=== PATIENT | male | born 1990 | race Caucasian/White ===

== ENCOUNTER 2016-11-24 17:34 | Emergency (ER) | payer MEDICAID | END 2016-11-24 20:18 | disposition home or self-care (01) | LOC: D.ER 17:34 | DX: Z76.0 Encounter for issue of repeat prescription (principal); G25.81 Restless legs syndrome; F17.200 Nicotine dependence, unspecified, uncomplicated ==

== ENCOUNTER 2017-05-10 16:15 | Emergency (ER) | payer MEDICAID ==
[2017-05-10 17:01] LABS: BASOPHILS 0.2 % (0-2); EOSINOPHILS 4.2 % (0-7); HEMATOCRIT 44.5 % (42.0-54.0); HEMOGLOBIN 15.4 g/dL (13.5-17.5); IMMATURE GRANULOCYTES 0.2 % (0-5); LYMPHOCYTES 29.7 % (15-50); MCH 31.4 pg (26.0-34.0); MCHC 34.6 g/dL (31.0-37.0); MCV 90.8 fL (80.0-100.0); MEAN PLATELET VOLUME 10.2 fL (7.4-10.4); MONOCYTES 7.2 % (2-11); NEUTROPHILS 58.5 % (40-80); PLATELET COUNT 271 10x3/uL (130-400); RDW 12.8 % (11.5-14.5); WBC 12.7 10x3/uL (4.8-10.8)
[2017-05-10 17:15] LABS: APTT 31.3 SECONDS (22.8-39.4); INR 0.92 (0.85-1.17); PROTIME 12.2 SECONDS (11.6-15.0)
[2017-05-10 17:18] LABS: ALBUMIN 4.3 g/dL (3.4-5.0); ALKALINE PHOSPHATASE 76 U/L (46-116); ALT (SGPT) 21 U/L (10-68); BILIRUBIN - TOTAL 0.21 mg/dL (0.2-1.3); CALC OSMOLALITY 278 mosm/kg (275-300); CALCIUM 9.2 mg/dL (8.5-10.1); CARBON DIOXIDE 26.6 mmol/L (21.0-32.0); CHLORIDE - SERUM 103 mmol/L (98-107); CREATININE - SERUM 0.9 mg/dL (0.6-1.3); GLUCOSE 77 mg/dL (74-106); POTASSIUM - SERUM 3.7 mmol/L (3.5-5.1); PROTEIN - SERUM 7.8 g/dL (6.4-8.2); SODIUM 141 mmol/L (136-145); UREA NITROGEN 11 mg/dL (7-18); eGFR NON AFRICAN AMERICAN > 90 mL/min (90-120)
== END 2017-05-10 18:56 | disposition home or self-care (01) ==
LOC: D.ER 16:15
PROVIDERS: Emergency Medicine
DX: K64.9 Unspecified hemorrhoids (principal); K04.7 Periapical abscess without sinus

== ENCOUNTER 2017-06-26 16:07 | Emergency (ER) | payer MEDICAID | END 2017-06-26 17:45 | disposition home or self-care (01) | LOC: D.ER 16:07 | DX: K02.9 Dental caries, unspecified (principal); K08.89 Other specified disorders of teeth and supporting structures; K04.7 Periapical abscess without sinus; F17.200 Nicotine dependence, unspecified, uncomplicated ==

== ENCOUNTER 2017-09-22 13:56 | Emergency (ER) | payer MEDICAID | END 2017-09-22 15:38 | disposition home or self-care (01) | LOC: D.ER 13:56 | DX: M25.471 Effusion, right ankle (principal); S99.911A Unspecified injury of right ankle, initial encounter; W19.XXXA Unspecified fall, initial encounter; Y93.89 Activity, other specified; Y92.019 Unspecified place in single-family (private) house as the place of occurrence of the external cause; F17.200 Nicotine dependence, unspecified, uncomplicated ==

== ENCOUNTER 2018-01-05 20:32 | Emergency (ER) | payer MEDICAID ==
[~2018-01-05] VITALS: Ht 180.3 cm; Wt 66.8 kg
[2018-01-05 20:36] VITALS: Ht 180.3 cm; Wt 66.8 kg
[2018-01-05] MEDS ORDERED: NORCO 7.5/325 T1 TA1 PO (22:46)
[2018-01-05] MEDS ORDERED: CLEOCIN HCL300 MG PO (22:47)
[2018-01-05 23:02] VITALS: BP 123/70
[2018-03-09 08:19] VITALS: Ht 180.3 cm; Wt 66.8 kg
== END 2018-01-05 23:04 | disposition home or self-care (01) ==
LOC: D.ER 20:32
DX: K08.109 Complete loss of teeth, unspecified cause, unspecified class (principal); F17.200 Nicotine dependence, unspecified, uncomplicated

== ENCOUNTER 2018-01-12 15:50 | Emergency (ER) | payer MEDICAID ==
[~2018-01-12] VITALS: Ht 180.3 cm; Wt 66.8 kg
[~2018-01-12 15:50] MED LIST: CLEOCIN HCL300 MG PO; NORCO 7.5/325 T1 TA1 PO
[2018-01-12 16:12] VITALS: BP 116/80; Ht 180.3 cm; Wt 66.8 kg
[2018-01-12] MEDS ORDERED: TYLENOL W/CODEI1 TAB PO (18:27)
[2018-03-09 08:19] VITALS: Ht 180.3 cm; Wt 66.8 kg
== END 2018-01-12 18:37 | disposition home or self-care (01) ==
LOC: D.ER 15:50
DX: K06.9 Disorder of gingiva and edentulous alveolar ridge, unspecified (principal); I10 Essential (primary) hypertension; F17.200 Nicotine dependence, unspecified, uncomplicated

== ENCOUNTER 2018-01-31 13:54 | Emergency (ER) | payer MEDICAID ==
[~2018-01-31] VITALS: Ht 180.3 cm; Wt 63.5 kg
[~2018-01-31 13:54] MED LIST changes: +TYLENOL W/CODEI1 TAB PO
[2018-01-31 14:03] VITALS: BP 102/63; Ht 180.3 cm; Wt 63.5 kg
[2018-01-31] MEDS ORDERED: CLEOCIN HCL300 MG PO (14:50)
[2018-01-31] MEDS ORDERED: VOLTAREN75 MG PO (14:50)
[2018-03-09 08:19] VITALS: Ht 180.3 cm; Wt 63.5 kg
== END 2018-01-31 15:08 | disposition home or self-care (01) ==
LOC: D.ER 13:54
DX: K04.7 Periapical abscess without sinus (principal); K08.89 Other specified disorders of teeth and supporting structures; I10 Essential (primary) hypertension

== ENCOUNTER 2018-02-28 17:38 | Emergency (ER) | payer MEDICAID ==
[2018-01-31 14:03] VITALS: BMI 20.5
[~2018-02-28 17:38] MED LIST changes: +VOLTAREN75 MG PO
[2018-03-09 08:19] VITALS: BMI 20.2
== END 2018-02-28 17:45 | disposition home or self-care (01) ==
LOC: D.ER 17:38
DX: L98.9 Disorder of the skin and subcutaneous tissue, unspecified (principal)

== ENCOUNTER 2018-03-01 19:49 | Inpatient (IN) | payer MEDICAID ==
[~2018-03-01] VITALS: Ht 180.3 cm; Wt 65.8 kg
--- NOTE | ~2018-03-01 | EC ---
PATIENT:PENNY DUMONT DATE OF SERVICE: 03/02/18 SEX: M MEDICAL RECORD: [id number] DATE OF : [birth year] LOCATION:[facility] AGE OF PATIENT: 27 ADMISSION DATE: 03/02/18 REFERRING PHYSICIAN: INTERPRETING PHYSICIAN: STEFANIA CALLAWAY MD ECHOCARDIOGRAM REPORT ECHO CHARGES 4 ECHO COMPLETE Date: 03/02/18 CLINICAL DIAGNOSIS: R/O VEGETATIONS ECHOCARDIOGRAPHIC MEASUREMENTS (adult normal given) AC root (d.<3.7cm) 3.6 cm LV Septum d (<1.2 cm> 1.0 cm Valve Excursion 2.4 cm LV Septum (systole) 1.5 cm Left Atria (s.<4.0cm> 3.5 cm LVPW d(<1.2cm) 1.0 cm RV (d.<2.3cm) 2.4 cm LVPW (sytole) 1.7 cm LV diastole(<5.6CM) 5.3 cm MV E-F(>70mm/sec) cm LV systole 3.0 cm LVOT Diameter 1.9 cm MV exc.(>10mm) cm Est.ejection fraction (50-75%) % DOPPLER: LVIT cm/sec A 46.0 cm/sec E 82.0 cm/sec LA cm/sec RVSP 31.4 mmHg LVOT 108 cm/sec AOP1/2T m/s Asc. Ao 115 cm/sec RVOT 54.0 cm/sec RA cm/sec PA 100 cm/sec AV Gradient Peak 5.3 mmHg AV Mean 3.3 mmHg AV Area 2.2 cm MV Gradient Peak 3.7 mmHg MV Mean 0.97 mmHg MV Area cm COMMENTS: Flying I Instructor: Xin DOVEOE Dish Cloth Inspector: 1 Dr. Callaway TAPE# PACS Pericardial Effusion N DATE OF SERVICE: 03/02/2018 PROCEDURE: Echocardiogram. FINDINGS: 1. Left ventricular chamber size is within normal limits. Left ventricular systolic function is normal. Overall ejection fraction estimated at 55%. 2. Left atrium, right atrium, and right ventricle chamber sizes are within normal limits. 3. Valvular structures have normal structure and motion. ECHOCARDIOGRAM REPORT [id number] PENNY DUMONT 4. Doppler interrogation reveals moderate tricuspid regurgitation, mild mitral regurgitation, no other valvular insufficiency or stenosis. Pulmonary systolic pressure is normal estimated 34 mmHg. 5. No evidence of pericardial effusion or left ventricular thrombus. 6. No evidence of vegetative endocarditis. TRANSINT:[id number] Voice Confirmation ID: [id number] DOCUMENT ID: [id number] STEFANIA CALLAWAY MD at 1950 CC: [id number] DICTATION DATE: 03/03/18 1121 CNS: 03/03/18 1135 DIS IN 03/07/18 [place] [id number] [place] [id number]
[2018-03-01 20:32] LABS: BASOPHILS 0.2 % (0-2); HEMATOCRIT 48.1 % (42.0-54.0); HEMOGLOBIN 17.4 g/dL (13.5-17.5); IMMATURE GRANULOCYTES 0.3 % (0-5); MCH 31.6 pg (26.0-34.0); MCHC 36.2 g/dL (31.0-37.0); MCV 87.3 fL (80.0-100.0); MEAN PLATELET VOLUME 10.7 fL (7.4-10.4); MONOCYTES 4.9 % (2-11); NEUTROPHILS 70.6 % (40-80); PLATELET COUNT 287 10x3/uL (130-400); RBC 5.51 10x6/uL (4.20-6.10); RDW 13.7 % (11.5-14.5); WBC 15.9 10x3/uL (4.8-10.8)
[2018-03-01 21:06] LABS: ALBUMIN 4.4 g/dL (3.4-5.0); ALKALINE PHOSPHATASE 77 U/L (46-116); ALT (SGPT) 20 U/L (10-68); BILIRUBIN - TOTAL 0.26 mg/dL (0.2-1.3); CALC OSMOLALITY 274 mosm/kg (275-300); CALCIUM 9.2 mg/dL (8.5-10.1); CARBON DIOXIDE 23.6 mmol/L (21.0-32.0); CHLORIDE - SERUM 102 mmol/L (98-107); CREATININE - SERUM 1.1 mg/dL (0.6-1.3); GLUCOSE 89 mg/dL (74-106); POTASSIUM - SERUM 4.2 mmol/L (3.5-5.1); PROTEIN - SERUM 8.1 g/dL (6.4-8.2); SODIUM 139 mmol/L (136-145); UREA NITROGEN 7 mg/dL (7-18); eGFR NON AFRICAN AMERICAN 84 mL/min (90-120)
[2018-03-02] MEDS ORDERED: NEURONTIN 300300 MG PO (01:52)
[2018-03-02] MEDS ORDERED: VALIUM10 MG PO (01:53)
[2018-03-02] MEDS ORDERED: ADDERALL 10 MG10 MG PO (01:54)
[2018-03-02 02:35] VITALS: BP 117/94; BMI 20.2
[2018-03-02 05:07] VITALS: BP 117/94
[2018-03-02 07:57] VITALS: BP 125/78
[2018-03-02 15:45] VITALS: BP 135/89
[2018-03-02 16:29] LABS: APPEARANCE CLEAR (CLEAR); BILIRUBIN NEGATIVE (NEGATIVE); COLOR YELLOW (YELLOW); GLUCOSE NEGATIVE (NEGATIVE); KETONE NEGATIVE (NEGATIVE); NITRITE NEGATIVE (NEGATIVE); PROTEIN NEGATIVE (NEGATIVE); SPECIFIC GRAVITY 1.015 (1.005-1.020); UROBILINOGEN NORMAL (NORMAL)
[2018-03-02 16:35] LABS: UDS - AMPHET NEGATIVE QUAL (NEGATIVE); UDS - BARB NEGATIVE QUAL (NEGATIVE); UDS - BENZO POSITIVE QUAL (NEGATIVE); UDS - COCAINE NEGATIVE QUAL (NEGATIVE); UDS - OPIATE POSITIVE QUAL (NEGATIVE); UDS - PCP NEGATIVE QUAL (NEGATIVE); UDS - THC NEGATIVE QUAL (NEGATIVE)
[2018-03-02 22:12] VITALS: BP 119/81
[2018-03-03 04:27] VITALS: BP 134/74
[2018-03-03 06:28] LABS: BASOPHILS 0.7 % (0-2); EOSINOPHILS 6.5 % (0-7); HEMATOCRIT 42.6 % (42.0-54.0); HEMOGLOBIN 14.8 g/dL (13.5-17.5); IMMATURE GRANULOCYTES 0.2 % (0-5); LYMPHOCYTES 37.1 % (15-50); MCH 30.6 pg (26.0-34.0); MCHC 34.7 g/dL (31.0-37.0); MEAN PLATELET VOLUME 11.5 fL (7.4-10.4); MONOCYTES 8.1 % (2-11); NEUTROPHILS 47.4 % (40-80); RBC 4.84 10x6/uL (4.20-6.10)
[2018-03-03 06:30] LABS: PLATELET COUNT 228 10x3/uL (130-400); WBC 8.9 10x3/uL (4.8-10.8)
[2018-03-03 06:57] LABS: CALC OSMOLALITY 275 mosm/kg (275-300); CALCIUM 8.3 mg/dL (8.5-10.1); CARBON DIOXIDE 25.9 mmol/L (21.0-32.0); CHLORIDE - SERUM 106 mmol/L (98-107); CREATININE - SERUM 0.9 mg/dL (0.6-1.3); GLUCOSE 117 mg/dL (74-106); POTASSIUM - SERUM 3.9 mmol/L (3.5-5.1); SODIUM 138 mmol/L (136-145); eGFR NON AFRICAN AMERICAN > 90 mL/min (90-120)
[2018-03-03 06:58] LABS: UREA NITROGEN 9 mg/dL (7-18)
[2018-03-03 09:19] VITALS: BP 97/52
[2018-03-03 12:12] VITALS: BMI 20.2
[2018-03-03 16:31] VITALS: BP 125/73
[2018-03-03 21:44] VITALS: BP 121/77
[2018-03-04 05:02] VITALS: BP 98/50
[2018-03-04 08:14] VITALS: BP 119/70
[2018-03-04 09:56] LABS: BASOPHILS 0.5 % (0-2); EOSINOPHILS 7.1 % (0-7); HEMOGLOBIN 14.9 g/dL (13.5-17.5); IMMATURE GRANULOCYTES 0.4 % (0-5); LYMPHOCYTES 34.4 % (15-50); MCH 30.6 pg (26.0-34.0); MCHC 34.7 g/dL (31.0-37.0); MCV 88.3 fL (80.0-100.0); MEAN PLATELET VOLUME 11.1 fL (7.4-10.4); MONOCYTES 9.5 % (2-11); NEUTROPHILS 48.1 % (40-80); PLATELET COUNT 225 10x3/uL (130-400); RBC 4.87 10x6/uL (4.20-6.10); WBC 7.3 10x3/uL (4.8-10.8)
[2018-03-04 10:10] LABS: ALBUMIN 2.9 g/dL (3.4-5.0); ALKALINE PHOSPHATASE 61 U/L (46-116); ALT (SGPT) 19 U/L (10-68); CALC OSMOLALITY 277 mosm/kg (275-300); CALCIUM 7.9 mg/dL (8.5-10.1); CARBON DIOXIDE 30.6 mmol/L (21.0-32.0); CHLORIDE - SERUM 106 mmol/L (98-107); GLUCOSE 110 mg/dL (74-106); POTASSIUM - SERUM 4.2 mmol/L (3.5-5.1); PROTEIN - SERUM 5.6 g/dL (6.4-8.2); SODIUM 140 mmol/L (136-145); UREA NITROGEN 8 mg/dL (7-18); eGFR NON AFRICAN AMERICAN > 90 mL/min (90-120)
[2018-03-04 12:02] VITALS: BP 114/69
[2018-03-05 06:00] LABS: BASOPHILS 0.6 % (0-2); EOSINOPHILS 6.4 % (0-7); HEMATOCRIT 42.7 % (42.0-54.0); IMMATURE GRANULOCYTES 0.4 % (0-5); LYMPHOCYTES 35.6 % (15-50); MCH 30.9 pg (26.0-34.0); MCHC 35.1 g/dL (31.0-37.0); MCV 87.9 fL (80.0-100.0); MEAN PLATELET VOLUME 11.3 fL (7.4-10.4); MONOCYTES 6.8 % (2-11); NEUTROPHILS 50.2 % (40-80); PLATELET COUNT 230 10x3/uL (130-400); RBC 4.86 10x6/uL (4.20-6.10); RDW 13.6 % (11.5-14.5); WBC 8.4 10x3/uL (4.8-10.8)
[2018-03-05 06:03] VITALS: BP 110/60; BP 111/56
[2018-03-05 06:15] LABS: ALBUMIN 3.4 g/dL (3.4-5.0); ALKALINE PHOSPHATASE 55 U/L (46-116); ALT (SGPT) 17 U/L (10-68); CALC OSMOLALITY 276 mosm/kg (275-300); CALCIUM 8.4 mg/dL (8.5-10.1); CARBON DIOXIDE 28.4 mmol/L (21.0-32.0); CHLORIDE - SERUM 105 mmol/L (98-107); CREATININE - SERUM 0.9 mg/dL (0.6-1.3); GLUCOSE 95 mg/dL (74-106); POTASSIUM - SERUM 4.3 mmol/L (3.5-5.1); PROTEIN - SERUM 6.3 g/dL (6.4-8.2); SODIUM 140 mmol/L (136-145); UREA NITROGEN 8 mg/dL (7-18); eGFR NON AFRICAN AMERICAN > 90 mL/min (90-120)
[2018-03-05 08:24] VITALS: BP 108/60
[2018-03-05 16:02] VITALS: BP 126/80
[2018-03-05 20:00] VITALS: BP 127/84
[2018-03-06 05:57] VITALS: BP 116/69
[2018-03-06 06:11] LABS: BASOPHILS 0.7 % (0-2); EOSINOPHILS 6.8 % (0-7); HEMATOCRIT 45.3 % (42.0-54.0); IMMATURE GRANULOCYTES 0.2 % (0-5); MCHC 35.3 g/dL (31.0-37.0); MCV 87.8 fL (80.0-100.0); MEAN PLATELET VOLUME 11.2 fL (7.4-10.4); MONOCYTES 7.3 % (2-11); PLATELET COUNT 251 10x3/uL (130-400); RBC 5.16 10x6/uL (4.20-6.10); RDW 13.7 % (11.5-14.5); WBC 9.4 10x3/uL (4.8-10.8)
[2018-03-06 06:38] LABS: ALBUMIN 3.2 g/dL (3.4-5.0); ALKALINE PHOSPHATASE 51 U/L (46-116); ALT (SGPT) 18 U/L (10-68); BILIRUBIN - TOTAL 0.16 mg/dL (0.2-1.3); CALC OSMOLALITY 277 mosm/kg (275-300); CALCIUM 8.5 mg/dL (8.5-10.1); CARBON DIOXIDE 27.5 mmol/L (21.0-32.0); CHLORIDE - SERUM 106 mmol/L (98-107); CREATININE - SERUM 0.8 mg/dL (0.6-1.3); GLUCOSE 91 mg/dL (74-106); POTASSIUM - SERUM 3.7 mmol/L (3.5-5.1); PROTEIN - SERUM 6.4 g/dL (6.4-8.2); SODIUM 140 mmol/L (136-145); UREA NITROGEN 10 mg/dL (7-18); eGFR NON AFRICAN AMERICAN > 90 mL/min (90-120)
[2018-03-06 07:37] LABS: RAPID PLASMA REAGIN Non Reactive (Non Reactive)
[2018-03-06 08:18] LABS: HEPATITIS C ANTIBODY <0.1 (0.0-0.9)
[2018-03-06 08:23] VITALS: BP 114/66
[2018-03-06 11:30] VITALS: BP 134/79
[2018-03-06 14:15] VITALS: Ht 180.3 cm; Wt 65.8 kg
[2018-03-06 15:30] VITALS: BP 126/73
[2018-03-06 21:13] VITALS: BP 111/65
[2018-03-07 05:14] VITALS: BP 124/64
[2018-03-07 05:53] LABS: BASOPHILS 0.5 % (0-2); EOSINOPHILS 5.6 % (0-7); HEMATOCRIT 43.1 % (42.0-54.0); HEMOGLOBIN 15.1 g/dL (13.5-17.5); IMMATURE GRANULOCYTES 0.2 % (0-5); LYMPHOCYTES 25.9 % (15-50); MCH 30.5 pg (26.0-34.0); MCV 87.1 fL (80.0-100.0); NEUTROPHILS 62.8 % (40-80); PLATELET COUNT 249 10x3/uL (130-400); RBC 4.95 10x6/uL (4.20-6.10); RDW 13.5 % (11.5-14.5); WBC 10.5 10x3/uL (4.8-10.8)
[2018-03-07 06:38] LABS: ALBUMIN 3.2 g/dL (3.4-5.0); ALKALINE PHOSPHATASE 42 U/L (46-116); ALT (SGPT) 19 U/L (10-68); BILIRUBIN - TOTAL 0.17 mg/dL (0.2-1.3); CALC OSMOLALITY 283 mosm/kg (275-300); CALCIUM 8.3 mg/dL (8.5-10.1); CARBON DIOXIDE 24.2 mmol/L (21.0-32.0); CHLORIDE - SERUM 108 mmol/L (98-107); CREATININE - SERUM 0.7 mg/dL (0.6-1.3); GLUCOSE 95 mg/dL (74-106); POTASSIUM - SERUM 4.1 mmol/L (3.5-5.1); SODIUM 143 mmol/L (136-145); UREA NITROGEN 9 mg/dL (7-18); eGFR NON AFRICAN AMERICAN > 90 mL/min (90-120)
[2018-03-07 09:30] VITALS: BP 110/64
[2018-03-07 10:55] VITALS: BP 122/85
[2018-03-07] MEDS ORDERED: Bactroban ointment TOPICAL (13:08)
[2018-03-07] MEDS ORDERED: CLEOCIN HCL300 MG PO (13:13)
== END 2018-03-07 16:33 | disposition home or self-care (01) | DRG 603 ==
LOC: D.ER 19:49 → D.MS 03-02 00:20 → D.EDHOLD 03-02 00:20 → D.MS 03-02 01:19
PROVIDERS: Family Medicine; Internal Medicine Nephrology
PROC: 0H9DXZZ Drainage of Right Lower Arm Skin, External Approach (ICD-10-PCS; principal; 2018-03-03)
PROC: 0H9DXZZ Drainage of Right Lower Arm Skin, External Approach (ICD-10-PCS; 2018-03-07)
DX: L03.113 Cellulitis of right upper limb (principal); F17.213 Nicotine dependence, cigarettes, with withdrawal; L02.413 Cutaneous abscess of right upper limb; K04.7 Periapical abscess without sinus; G40.909 Epilepsy, unspecified, not intractable, without status epilepticus; I10 Essential (primary) hypertension; Z85.72 Personal history of non-Hodgkin lymphomas; K06.9 Disorder of gingiva and edentulous alveolar ridge, unspecified; N48.89 Other specified disorders of penis

== ENCOUNTER 2018-03-09 07:57 | Emergency (ER) | payer MEDICAID ==
[~2018-03-09] VITALS: Ht 180.3 cm; Wt 65.9 kg
[~2018-03-09 07:57] MED LIST changes: +ADDERALL 10 MG10 MG PO; +Bactroban ointment TOPICAL; +NEURONTIN 300300 MG PO; +VALIUM10 MG PO
[2018-03-09 08:19] VITALS: Ht 180.3 cm; Wt 65.9 kg
[2018-03-09 09:07] LABS: BASOPHILS 0.4 % (0-2); EOSINOPHILS 4.5 % (0-7); HEMATOCRIT 49.5 % (42.0-54.0); HEMOGLOBIN 17.4 g/dL (13.5-17.5); IMMATURE GRANULOCYTES 0.3 % (0-5); LYMPHOCYTES 17.6 % (15-50); MCH 31.1 pg (26.0-34.0); MCHC 35.2 g/dL (31.0-37.0); MCV 88.4 fL (80.0-100.0); MEAN PLATELET VOLUME 10.6 fL (7.4-10.4); MONOCYTES 6.2 % (2-11); PLATELET COUNT 281 10x3/uL (130-400); RDW 13.6 % (11.5-14.5); WBC 11.3 10x3/uL (4.8-10.8)
[2018-03-09 09:14] LABS: UDS - AMPHET NEGATIVE QUAL (NEGATIVE); UDS - BARB NEGATIVE QUAL (NEGATIVE); UDS - BENZO POSITIVE QUAL (NEGATIVE); UDS - COCAINE NEGATIVE QUAL (NEGATIVE); UDS - OPIATE NEGATIVE QUAL (NEGATIVE); UDS - PCP NEGATIVE QUAL (NEGATIVE); UDS - THC NEGATIVE QUAL (NEGATIVE)
[2018-03-09 09:15] LABS: APPEARANCE CLEAR (CLEAR); BILIRUBIN NEGATIVE (NEGATIVE); COLOR YELLOW (YELLOW); GLUCOSE NEGATIVE (NEGATIVE); KETONE NEGATIVE (NEGATIVE); NITRITE NEGATIVE (NEGATIVE); PROTEIN NEGATIVE (NEGATIVE); UROBILINOGEN NORMAL (NORMAL)
[2018-03-09 09:29] LABS: ALBUMIN 4.4 g/dL (3.4-5.0); ALKALINE PHOSPHATASE 57 U/L (46-116); ALT (SGPT) 26 U/L (10-68); BILIRUBIN - TOTAL 0.39 mg/dL (0.2-1.3); C-REACTIVE PROTEIN < 0.2 mg/dL (0.0-0.9); CALC OSMOLALITY 274 mosm/kg (275-300); CALCIUM 9.5 mg/dL (8.5-10.1); CARBON DIOXIDE 28.1 mmol/L (21.0-32.0); CHLORIDE - SERUM 103 mmol/L (98-107); CREATININE - SERUM 0.9 mg/dL (0.6-1.3); GLUCOSE 92 mg/dL (74-106); POTASSIUM - SERUM 4.3 mmol/L (3.5-5.1); PROTEIN - SERUM 8.3 g/dL (6.4-8.2); SODIUM 138 mmol/L (136-145); UREA NITROGEN 11 mg/dL (7-18); eGFR NON AFRICAN AMERICAN > 90 mL/min (90-120)
[2018-03-09] MEDS ORDERED: TYLENOL W/CODEI1 TAB PO (09:29)
[2018-03-09 09:59] VITALS: BP 140/96
== END 2018-03-09 10:06 | disposition home or self-care (01) ==
LOC: D.ER 07:57
PROVIDERS: Family Medicine
DX: L02.413 Cutaneous abscess of right upper limb (principal); G40.909 Epilepsy, unspecified, not intractable, without status epilepticus; I10 Essential (primary) hypertension

== ENCOUNTER 2018-04-03 14:10 | Emergency (ER) | payer MEDICAID ==
[~2018-04-03] VITALS: Ht 180.3 cm; Wt 68.2 kg
[2018-04-03 14:16] VITALS: Ht 180.3 cm; Wt 68.2 kg
[2018-04-03] MEDS ORDERED: CELEXA20 MG PO (14:19)
[2018-04-03] MEDS ORDERED: NEURONTIN600 MG PO (15:34)
[2018-04-03 15:55] VITALS: BP 126/79
== END 2018-04-03 15:55 | disposition home or self-care (01) ==
LOC: D.ER 14:10
DX: Z76.0 Encounter for issue of repeat prescription (principal); G40.909 Epilepsy, unspecified, not intractable, without status epilepticus; F17.200 Nicotine dependence, unspecified, uncomplicated

== ENCOUNTER 2018-04-21 15:39 | Emergency (ER) | payer MEDICAID ==
[~2018-04-21] VITALS: Ht 180.3 cm; Wt 71.4 kg
[~2018-04-21 15:39] MED LIST changes: +CELEXA20 MG PO; +NEURONTIN600 MG PO
[2018-04-21 15:43] VITALS: Ht 180.3 cm; Wt 71.4 kg
[2018-04-21] MEDS ORDERED: NEURONTIN600 MG PO (16:34)
[2018-04-21 17:02] VITALS: BP 135/91
== END 2018-04-21 17:03 | disposition home or self-care (01) ==
LOC: D.ER 15:39
DX: G40.909 Epilepsy, unspecified, not intractable, without status epilepticus (principal); F41.9 Anxiety disorder, unspecified; I10 Essential (primary) hypertension; F17.200 Nicotine dependence, unspecified, uncomplicated

== ENCOUNTER 2018-05-06 00:01 | Emergency (ER) | payer MEDICAID ==
[~2018-05-06] VITALS: Ht 180.3 cm; Wt 65.9 kg
[2018-05-06 00:12] VITALS: Ht 180.3 cm; Wt 65.9 kg
[2018-05-06] MEDS ORDERED: LITHIUM CARBON300 MG PO (00:14)
[2018-05-06 00:59] LABS: BASOPHILS 0.2 % (0-2); EOSINOPHILS 2.5 % (0-7); HEMATOCRIT 44.4 % (42.0-54.0); IMMATURE GRANULOCYTES 0.3 % (0-5); MCH 31.6 pg (26.0-34.0); MCV 87.6 fL (80.0-100.0); MEAN PLATELET VOLUME 10.4 fL (7.4-10.4); MONOCYTES 7.8 % (2-11); NEUTROPHILS 68.2 % (40-80); PLATELET COUNT 269 10x3/uL (130-400); RBC 5.07 10x6/uL (4.20-6.10); RDW 13.3 % (11.5-14.5); SALICYLATES 3.5 mg/dL (2.8-20.0); WBC 14.9 10x3/uL (4.8-10.8)
[2018-05-06 01:04] LABS: ALBUMIN 3.6 g/dL (3.4-5.0); ALKALINE PHOSPHATASE 52 U/L (46-116); ALT (SGPT) 37 U/L (10-68); BILIRUBIN - TOTAL 0.65 mg/dL (0.2-1.3); CALC OSMOLALITY 287 mosm/kg (275-300); CALCIUM 9.1 mg/dL (8.5-10.1); CARBON DIOXIDE 28.4 mmol/L (21.0-32.0); CHLORIDE - SERUM 104 mmol/L (98-107); GLUCOSE 80 mg/dL (74-106); PROTEIN - SERUM 6.7 g/dL (6.4-8.2); SODIUM 143 mmol/L (136-145); UREA NITROGEN 25 mg/dL (7-18); eGFR NON AFRICAN AMERICAN > 90 mL/min (90-120)
[2018-05-06 01:05] LABS: LITHIUM 0.11 mmol/L (0.60-1.20)
[2018-05-06 01:20] LABS: APPEARANCE CLEAR (CLEAR); BILIRUBIN NEGATIVE (NEGATIVE); COLOR STRAW (YELLOW); GLUCOSE NEGATIVE (NEGATIVE); KETONE NEGATIVE (NEGATIVE); NITRITE NEGATIVE (NEGATIVE); PH 6.5 (5.0-6.0); PROTEIN NEGATIVE (NEGATIVE); SPECIFIC GRAVITY 1.005 (1.005-1.020); UROBILINOGEN NORMAL (NORMAL)
[2018-05-06 01:33] LABS: UDS - AMPHET POSITIVE QUAL (NEGATIVE); UDS - BARB NEGATIVE QUAL (NEGATIVE); UDS - BENZO POSITIVE QUAL (NEGATIVE); UDS - COCAINE NEGATIVE QUAL (NEGATIVE); UDS - OPIATE NEGATIVE QUAL (NEGATIVE); UDS - PCP NEGATIVE QUAL (NEGATIVE); UDS - THC POSITIVE QUAL (NEGATIVE)
[2018-05-06 04:10] VITALS: BP 128/87
== END 2018-05-06 04:22 ==
LOC: D.ER 00:01
PROVIDERS: Family Medicine
DX: F19.10 Other psychoactive substance abuse, uncomplicated (principal); R44.0 Auditory hallucinations; R44.1 Visual hallucinations; R45.851 Suicidal ideations

== ENCOUNTER 2018-06-07 15:14 | Emergency (ER) | payer MEDICAID ==
[2018-06-07 15:51] LABS: UDS - AMPHET NEGATIVE QUAL (NEGATIVE); UDS - BARB NEGATIVE QUAL (NEGATIVE); UDS - BENZO POSITIVE QUAL (NEGATIVE); UDS - COCAINE NEGATIVE QUAL (NEGATIVE); UDS - OPIATE NEGATIVE QUAL (NEGATIVE); UDS - PCP NEGATIVE QUAL (NEGATIVE); UDS - THC POSITIVE QUAL (NEGATIVE)
[2018-06-07 15:55] LABS: APPEARANCE CLEAR (CLEAR); BILIRUBIN NEGATIVE (NEGATIVE); COLOR YELLOW (YELLOW); GLUCOSE NEGATIVE (NEGATIVE); KETONE NEGATIVE (NEGATIVE); NITRITE NEGATIVE (NEGATIVE); PROTEIN NEGATIVE (NEGATIVE); UROBILINOGEN NORMAL (NORMAL)
[2018-06-07 15:59] LABS: BASOPHILS 0.5 % (0-2); EOSINOPHILS 8.4 % (0-7); HEMATOCRIT 43.5 % (42.0-54.0); HEMOGLOBIN 15.6 g/dL (13.5-17.5); IMMATURE GRANULOCYTES 0.3 % (0-5); LYMPHOCYTES 24.8 % (15-50); MCH 31.3 pg (26.0-34.0); MCHC 35.9 g/dL (31.0-37.0); MCV 87.3 fL (80.0-100.0); MEAN PLATELET VOLUME 10.4 fL (7.4-10.4); PLATELET COUNT 286 10x3/uL (130-400); RBC 4.98 10x6/uL (4.20-6.10); RDW 13.4 % (11.5-14.5); WBC 12.2 10x3/uL (4.8-10.8)
[2018-06-07 16:15] LABS: ALBUMIN 4.3 g/dL (3.4-5.0); ALKALINE PHOSPHATASE 67 U/L (46-116); ALT (SGPT) 24 U/L (10-68); BILIRUBIN - TOTAL 0.28 mg/dL (0.2-1.3); CALC OSMOLALITY 277 mosm/kg (275-300); CALCIUM 9.5 mg/dL (8.5-10.1); CARBON DIOXIDE 27.3 mmol/L (21.0-32.0); CHLORIDE - SERUM 104 mmol/L (98-107); CREATININE - SERUM 0.9 mg/dL (0.6-1.3); GLUCOSE 107 mg/dL (74-106); PROTEIN - SERUM 8.1 g/dL (6.4-8.2); SODIUM 140 mmol/L (136-145); UREA NITROGEN 10 mg/dL (7-18); eGFR NON AFRICAN AMERICAN > 90 mL/min (90-120)
== END 2018-06-08 00:25 ==
LOC: D.ER 15:14
PROVIDERS: Emergency Medicine
DX: F32.9 Major depressive disorder, single episode, unspecified (principal); F20.9 Schizophrenia, unspecified; R45.851 Suicidal ideations; F17.200 Nicotine dependence, unspecified, uncomplicated

== ENCOUNTER 2018-06-12 12:55 | Emergency (ER) | payer MEDICAID ==
[~2018-06-12] VITALS: Ht 180.3 cm; Wt 73.6 kg
[~2018-06-12 12:55] MED LIST changes: +LITHIUM CARBON300 MG PO
[2018-06-12 13:00] VITALS: Ht 180.3 cm; Wt 73.6 kg
[2018-06-12 13:29] LABS: APPEARANCE CLEAR (CLEAR); BILIRUBIN NEGATIVE (NEGATIVE); COLOR STRAW (YELLOW); GLUCOSE NEGATIVE (NEGATIVE); KETONE NEGATIVE (NEGATIVE); NITRITE NEGATIVE (NEGATIVE); PROTEIN NEGATIVE (NEGATIVE); SPECIFIC GRAVITY 1.005 (1.005-1.020); UROBILINOGEN NORMAL (NORMAL)
[2018-06-12 13:34] LABS: WBC 20.6 10x3/uL (4.8-10.8)
[2018-06-12 13:35] LABS: HEMATOCRIT 43.4 % (42.0-54.0); HEMOGLOBIN 15.2 g/dL (13.5-17.5); MCH 31.1 pg (26.0-34.0); MCV 88.9 fL (80.0-100.0); MEAN PLATELET VOLUME 10.6 fL (7.4-10.4); PLATELET COUNT 264 10x3/uL (130-400); RBC 4.88 10x6/uL (4.20-6.10); RDW 13.8 % (11.5-14.5)
[2018-06-12 13:50] LABS: EOSINOPHILS 5 % (0-7); LITHIUM 0.46 mmol/L (0.60-1.20); LYMPHOCYTES 25 % (15-50); MONOCYTES 2 % (2-11); NEUTROPHILS 67 % (40-80)
[2018-06-12 13:51] LABS: HYPOCHROMASIA OCC; PLATELET ESTIMATE NORMAL; PLATELET MORPHOLOGY NORMAL PLT MORPH; TARGET CELLS OCC
[2018-06-12 13:52] LABS: UDS - AMPHET NEGATIVE QUAL (NEGATIVE); UDS - BARB NEGATIVE QUAL (NEGATIVE); UDS - BENZO POSITIVE QUAL (NEGATIVE); UDS - COCAINE NEGATIVE QUAL (NEGATIVE); UDS - OPIATE NEGATIVE QUAL (NEGATIVE); UDS - PCP NEGATIVE QUAL (NEGATIVE); UDS - THC POSITIVE QUAL (NEGATIVE)
[2018-06-12 13:53] LABS: ALBUMIN 4.1 g/dL (3.4-5.0); ALKALINE PHOSPHATASE 57 U/L (46-116); ALT (SGPT) 20 U/L (10-68); BILIRUBIN - TOTAL 0.25 mg/dL (0.2-1.3); CALC OSMOLALITY 277 mosm/kg (275-300); CALCIUM 8.7 mg/dL (8.5-10.1); CHLORIDE - SERUM 103 mmol/L (98-107); GLUCOSE 101 mg/dL (74-106); POTASSIUM - SERUM 3.8 mmol/L (3.5-5.1); PROTEIN - SERUM 7.9 g/dL (6.4-8.2); SODIUM 140 mmol/L (136-145); UREA NITROGEN 10 mg/dL (7-18); eGFR NON AFRICAN AMERICAN > 90 mL/min (90-120)
[2018-06-13 03:32] VITALS: BP 135/75
== END 2018-06-13 03:30 | disposition home or self-care (01) ==
LOC: D.ER 12:55
PROVIDERS: Family Medicine
DX: F31.9 Bipolar disorder, unspecified (principal); F20.9 Schizophrenia, unspecified; I10 Essential (primary) hypertension; F17.200 Nicotine dependence, unspecified, uncomplicated

== ENCOUNTER 2018-09-23 22:51 | Emergency (ER) | payer MEDICAID ==
[~2018-09-23] VITALS: Ht 180.3 cm; Wt 74.8 kg
[2018-09-23 22:58] VITALS: BP 146/87; Ht 180.3 cm; Wt 74.8 kg
[2018-09-23] MEDS ORDERED: KLONOPIN1 MG (23:00)
[2018-09-23] MEDS ORDERED: ZOLOFT25 MG (23:00)
[2018-09-23] MEDS ORDERED: PROPRANOLOL HCL20 MG (23:01)
[2018-09-23] MEDS ORDERED: SEROQUEL100 MG (23:01)
[2018-09-23 23:32] LABS: APPEARANCE CLEAR (CLEAR); BILIRUBIN NEGATIVE (NEGATIVE); COLOR YELLOW (YELLOW); GLUCOSE NEGATIVE (NEGATIVE); KETONE NEGATIVE (NEGATIVE); NITRITE NEGATIVE (NEGATIVE); PROTEIN NEGATIVE (NEGATIVE); UROBILINOGEN NORMAL (NORMAL)
[2018-09-23 23:40] LABS: UDS - AMPHET NEGATIVE QUAL (NEGATIVE); UDS - BARB NEGATIVE QUAL (NEGATIVE); UDS - BENZO NEGATIVE QUAL (NEGATIVE); UDS - COCAINE NEGATIVE QUAL (NEGATIVE); UDS - OPIATE NEGATIVE QUAL (NEGATIVE); UDS - PCP NEGATIVE QUAL (NEGATIVE); UDS - THC POSITIVE QUAL (NEGATIVE)
[2018-09-24 00:24] LABS: BASOPHILS 0.2 % (0-2); EOSINOPHILS 2.5 % (0-7); HEMATOCRIT 43.2 % (42.0-54.0); HEMOGLOBIN 15.3 g/dL (13.5-17.5); IMMATURE GRANULOCYTES 0.5 % (0-5); LYMPHOCYTES 25.7 % (15-50); MCH 30.5 pg (26.0-34.0); MCHC 35.4 g/dL (31.0-37.0); MCV 86.1 fL (80.0-100.0); MEAN PLATELET VOLUME 10.7 fL (7.4-10.4); MONOCYTES 5.8 % (2-11); NEUTROPHILS 65.3 % (40-80); PLATELET COUNT 306 10x3/uL (130-400); RBC 5.02 10x6/uL (4.20-6.10); RDW 13.2 % (11.5-14.5); WBC 16.2 10x3/uL (4.8-10.8)
[2018-09-24 00:39] LABS: ALBUMIN 4.2 g/dL (3.4-5.0); ALKALINE PHOSPHATASE 73 U/L (46-116); ALT (SGPT) 30 U/L (10-68); BILIRUBIN - TOTAL 0.18 mg/dL (0.2-1.3); CALC OSMOLALITY 277 mosm/kg (275-300); CALCIUM 8.5 mg/dL (8.5-10.1); CARBON DIOXIDE 28.3 mmol/L (21.0-32.0); CHLORIDE - SERUM 102 mmol/L (98-107); GLUCOSE 100 mg/dL (74-106); POTASSIUM - SERUM 3.7 mmol/L (3.5-5.1); PROTEIN - SERUM 7.9 g/dL (6.4-8.2); SODIUM 140 mmol/L (136-145); UREA NITROGEN 10 mg/dL (7-18); eGFR NON AFRICAN AMERICAN > 90 mL/min (90-120)
[2018-09-24] MEDS ORDERED: PROPRANOLOL HCL20 MG PO (09:38)
[2018-09-24] MEDS ORDERED: KLONOPIN1 MG PO (09:39)
[2018-09-24] MEDS ORDERED: SEROQUEL400 MG PO (09:39)
== END 2018-09-24 15:45 ==
LOC: D.ER 22:51
PROVIDERS: Family Medicine
DX: R45.851 Suicidal ideations (principal); R45.850 Homicidal ideations; Y04.2XXA Assault by strike against or bumped into by another person, initial encounter; Y93.89 Activity, other specified; Y92.89 Other specified places as the place of occurrence of the external cause

== ENCOUNTER 2018-10-13 15:15 | Emergency (ER) | payer MEDICAID ==
[~2018-10-13 15:15] MED LIST changes: +KLONOPIN1 MG; +KLONOPIN1 MG PO; +PROPRANOLOL HCL20 MG; +PROPRANOLOL HCL20 MG PO; +SEROQUEL100 MG; +SEROQUEL400 MG PO; +ZOLOFT25 MG
[2018-10-13 15:45] LABS: BASOPHILS 0.2 % (0-2); EOSINOPHILS 6.5 % (0-7); HEMATOCRIT 42.7 % (42.0-54.0); IMMATURE GRANULOCYTES 0.3 % (0-5); LYMPHOCYTES 22.2 % (15-50); MCH 30.1 pg (26.0-34.0); MCHC 35.1 g/dL (31.0-37.0); MCV 85.7 fL (80.0-100.0); MEAN PLATELET VOLUME 10.6 fL (7.4-10.4); MONOCYTES 7.8 % (2-11); PLATELET COUNT 255 10x3/uL (130-400); RBC 4.98 10x6/uL (4.20-6.10); RDW 13.2 % (11.5-14.5)
[2018-10-13 15:45] LABS: APPEARANCE CLEAR (CLEAR); COLOR YELLOW (YELLOW)
[2018-10-13 15:46] LABS: BILIRUBIN NEGATIVE (NEGATIVE); GLUCOSE NEGATIVE (NEGATIVE); KETONE NEGATIVE (NEGATIVE); NITRITE NEGATIVE (NEGATIVE); PROTEIN NEGATIVE (NEGATIVE); UROBILINOGEN NORMAL (NORMAL)
[2018-10-13 15:47] LABS: UDS - AMPHET NEGATIVE QUAL (NEGATIVE); UDS - BARB NEGATIVE QUAL (NEGATIVE); UDS - BENZO NEGATIVE QUAL (NEGATIVE); UDS - COCAINE NEGATIVE QUAL (NEGATIVE); UDS - OPIATE NEGATIVE QUAL (NEGATIVE); UDS - PCP NEGATIVE QUAL (NEGATIVE); UDS - THC POSITIVE QUAL (NEGATIVE); WHITE CELLS - URINE OCC /hpf (0-5)
[2018-10-13 15:48] LABS: BACTERIA FEW /hpf (NONE SEEN); RED CELLS - URINE RARE /hpf (0-5)
[2018-10-13 16:00] LABS: ACETAMINOPHEN 2.1 ug/mL (10.0-30.0); ALBUMIN 3.9 g/dL (3.4-5.0); ANION GAP 14.2 mmol/L (8-16); BILIRUBIN - TOTAL 0.23 mg/dL (0.2-1.3); CALCIUM 9.1 mg/dL (8.5-10.1); CARBON DIOXIDE 25.3 mmol/L (21.0-32.0); CREATININE - SERUM 1.6 mg/dL (0.6-1.3); MAGNESIUM - SERUM 1.8 mg/dL (1.8-2.4); POTASSIUM - SERUM 3.5 mmol/L (3.5-5.1); PROTEIN - SERUM 7.6 g/dL (6.4-8.2)
[2018-10-13] MEDS ORDERED: ZYPREXA (19:16)
== END 2018-10-14 06:36 ==
LOC: D.ER 15:15
PROVIDERS: Family Medicine
DX: R45.851 Suicidal ideations (principal)

== ENCOUNTER 2018-10-26 19:02 | Emergency (ER) | payer MEDICAID ==
[~2018-10-26 19:02] MED LIST changes: +ZYPREXA
[2018-10-26 19:17] VITALS: BMI 23.0
[2018-10-26] MEDS ORDERED: ABILIFY10 MG PO (19:20)
[2018-10-26] MEDS ORDERED: LYRICA50 MG PO ×2 (19:20→19:43)
[2018-10-26 19:50] VITALS: BP 136/81
== END 2018-10-26 19:52 | disposition home or self-care (01) ==
LOC: D.ER 19:02
DX: Z76.0 Encounter for issue of repeat prescription (principal); G62.9 Polyneuropathy, unspecified; F20.9 Schizophrenia, unspecified

== ENCOUNTER 2018-10-26 20:52 | Emergency (ER) | payer MEDICAID ==
[~2018-10-26 20:52] MED LIST changes: +ABILIFY10 MG PO; +LYRICA50 MG PO
[2018-10-26 21:19] VITALS: BP 132/77; BMI 22.3
== END 2018-10-26 22:00 | disposition left against medical advice (07) ==
LOC: D.ER 20:52
DX: Z76.0 Encounter for issue of repeat prescription (principal); G62.9 Polyneuropathy, unspecified; F20.9 Schizophrenia, unspecified

== ENCOUNTER 2018-11-02 20:24 | Emergency (ER) | payer MEDICAID ==
[2018-11-02 20:30] VITALS: BMI 23.7
[2018-11-02] MEDS ORDERED: ZOLOFT25 MG (20:32)
[2018-11-02] MEDS ORDERED: GABAPENTIN100 MG (20:33)
[2018-11-02] MEDS ORDERED: BUPROPION HCL100 M1 (20:33)
[2018-11-02] MEDS ORDERED: KLONOPIN0.5 MG (20:37)
[2018-11-02] MEDS ORDERED: PROPRANOLOL HCL60 MG (20:37)
[2018-11-02 20:50] LABS: BASOPHILS 0.3 % (0-2); HEMATOCRIT 43.8 % (42.0-54.0); HEMOGLOBIN 15.9 g/dL (13.5-17.5); IMMATURE GRANULOCYTES 0.2 % (0-5); LYMPHOCYTES 25.7 % (15-50); MCH 30.9 pg (26.0-34.0); MCHC 36.3 g/dL (31.0-37.0); MCV 85.2 fL (80.0-100.0); MEAN PLATELET VOLUME 10.5 fL (7.4-10.4); MONOCYTES 4.5 % (2-11); NEUTROPHILS 64.3 % (40-80); PLATELET COUNT 270 10x3/uL (130-400); RBC 5.14 10x6/uL (4.20-6.10); RDW 13.8 % (11.5-14.5); WBC 12.6 10x3/uL (4.8-10.8)
[2018-11-02 21:05] LABS: APPEARANCE CLEAR (CLEAR); BILIRUBIN NEGATIVE (NEGATIVE); COLOR YELLOW (YELLOW); GLUCOSE NEGATIVE (NEGATIVE); KETONE NEGATIVE (NEGATIVE); NITRITE NEGATIVE (NEGATIVE); PROTEIN NEGATIVE (NEGATIVE); UROBILINOGEN NORMAL (NORMAL)
[2018-11-02 21:07] LABS: ALBUMIN 4.6 g/dL (3.4-5.0); ALKALINE PHOSPHATASE 65 U/L (46-116); ALT (SGPT) 20 U/L (10-68); BILIRUBIN - TOTAL 0.33 mg/dL (0.2-1.3); CALC OSMOLALITY 283 mosm/kg (275-300); CALCIUM 9.5 mg/dL (8.5-10.1); CARBON DIOXIDE 27.3 mmol/L (21.0-32.0); CHLORIDE - SERUM 106 mmol/L (98-107); GLUCOSE 87 mg/dL (74-106); MAGNESIUM - SERUM 2.2 mg/dL (1.8-2.4); POTASSIUM - SERUM 3.9 mmol/L (3.5-5.1); PROTEIN - SERUM 8.2 g/dL (6.4-8.2); SODIUM 143 mmol/L (136-145); UREA NITROGEN 13 mg/dL (7-18); eGFR NON AFRICAN AMERICAN > 90 mL/min (90-120)
[2018-11-02 21:15] LABS: UDS - AMPHET NEGATIVE QUAL (NEGATIVE); UDS - BARB NEGATIVE QUAL (NEGATIVE); UDS - BENZO POSITIVE QUAL (NEGATIVE); UDS - COCAINE NEGATIVE QUAL (NEGATIVE); UDS - OPIATE NEGATIVE QUAL (NEGATIVE); UDS - PCP NEGATIVE QUAL (NEGATIVE); UDS - THC POSITIVE QUAL (NEGATIVE)
[2018-11-03 06:31] VITALS: BP 116/87
== END 2018-11-03 07:45 ==
LOC: D.ER 20:24
PROVIDERS: Family Medicine
DX: F31.9 Bipolar disorder, unspecified (principal); G47.00 Insomnia, unspecified; M79.606 Pain in leg, unspecified; R45.851 Suicidal ideations

== ENCOUNTER 2018-11-19 15:13 | Emergency (ER) | payer MEDICAID ==
[~2018-11-19] VITALS: Ht 180.3 cm; Wt 79.5 kg
[~2018-11-19 15:13] MED LIST changes: +BUPROPION HCL100 M1; +GABAPENTIN100 MG; +KLONOPIN0.5 MG; +PROPRANOLOL HCL60 MG
[2018-11-19 15:22] VITALS: Ht 180.3 cm; Wt 79.5 kg
[2018-11-19 16:15] LABS: BASOPHILS 0.5 % (0-2); EOSINOPHILS 5.5 % (0-7); HEMATOCRIT 45.6 % (42.0-54.0); HEMOGLOBIN 16.2 g/dL (13.5-17.5); IMMATURE GRANULOCYTES 0.3 % (0-5); LYMPHOCYTES 36.5 % (15-50); MCH 30.8 pg (26.0-34.0); MCHC 35.5 g/dL (31.0-37.0); MCV 86.7 fL (80.0-100.0); MEAN PLATELET VOLUME 10.9 fL (7.4-10.4); MONOCYTES 5.7 % (2-11); NEUTROPHILS 51.5 % (40-80); PLATELET COUNT 271 10x3/uL (130-400); RBC 5.26 10x6/uL (4.20-6.10); RDW 13.3 % (11.5-14.5); WBC 7.9 10x3/uL (4.8-10.8)
[2018-11-19 16:21] LABS: ALBUMIN 4.4 g/dL (3.4-5.0); ALKALINE PHOSPHATASE 56 U/L (46-116); ALT (SGPT) 24 U/L (10-68); BILIRUBIN - TOTAL 0.27 mg/dL (0.2-1.3); CALC OSMOLALITY 276 mosm/kg (275-300); CARBON DIOXIDE 31.2 mmol/L (21.0-32.0); CHLORIDE - SERUM 104 mmol/L (98-107); CREATININE - SERUM 1.1 mg/dL (0.6-1.3); GLUCOSE 85 mg/dL (74-106); POTASSIUM - SERUM 4.7 mmol/L (3.5-5.1); PROTEIN - SERUM 7.8 g/dL (6.4-8.2); SODIUM 140 mmol/L (136-145); UREA NITROGEN 11 mg/dL (7-18); eGFR NON AFRICAN AMERICAN 83 mL/min (90-120)
[2018-11-19 16:24] LABS: APPEARANCE CLEAR (CLEAR); BILIRUBIN NEGATIVE (NEGATIVE); COLOR YELLOW (YELLOW); GLUCOSE NEGATIVE (NEGATIVE); KETONE NEGATIVE (NEGATIVE); NITRITE NEGATIVE (NEGATIVE); PROTEIN NEGATIVE (NEGATIVE); UROBILINOGEN NORMAL (NORMAL)
[2018-11-19 16:26] LABS: UDS - AMPHET NEGATIVE QUAL (NEGATIVE); UDS - BARB NEGATIVE QUAL (NEGATIVE); UDS - BENZO POSITIVE QUAL (NEGATIVE); UDS - COCAINE NEGATIVE QUAL (NEGATIVE); UDS - OPIATE NEGATIVE QUAL (NEGATIVE); UDS - PCP NEGATIVE QUAL (NEGATIVE); UDS - THC NEGATIVE QUAL (NEGATIVE)
[2018-11-20 02:50] VITALS: BP 127/87
== END 2018-11-20 02:50 ==
LOC: D.ER 15:13
PROVIDERS: Family Medicine
DX: R45.851 Suicidal ideations (principal); F31.9 Bipolar disorder, unspecified

== ENCOUNTER 2018-12-15 14:32 | Emergency (ER) | payer MEDICAID ==
[~2018-12-15] VITALS: Ht 180.3 cm; Wt 70.9 kg
[2018-12-15 14:58] VITALS: Ht 180.3 cm; Wt 70.9 kg
[2018-12-15 15:48] LABS: APPEARANCE CLEAR (CLEAR); BILIRUBIN NEGATIVE (NEGATIVE); COLOR STRAW (YELLOW); GLUCOSE NEGATIVE (NEGATIVE); KETONE NEGATIVE (NEGATIVE); NITRITE NEGATIVE (NEGATIVE); PROTEIN NEGATIVE (NEGATIVE); UROBILINOGEN NORMAL (NORMAL)
[2018-12-15 15:55] LABS: BASOPHILS 0.5 % (0-2); EOSINOPHILS 3.9 % (0-7); HEMATOCRIT 44.3 % (42.0-54.0); HEMOGLOBIN 16.1 g/dL (13.5-17.5); IMMATURE GRANULOCYTES 0.2 % (0-5); LYMPHOCYTES 33.7 % (15-50); MCH 31.2 pg (26.0-34.0); MCHC 36.3 g/dL (31.0-37.0); MCV 85.9 fL (80.0-100.0); MONOCYTES 7.1 % (2-11); NEUTROPHILS 54.6 % (40-80); PLATELET COUNT 239 10x3/uL (130-400); RBC 5.16 10x6/uL (4.20-6.10); RDW 13.2 % (11.5-14.5); WBC 10.2 10x3/uL (4.8-10.8)
--- NOTE | 2018-12-15 15:57 | NUR ---
DR. CARBAJAL NOTIFIED AND 1:1 SITTER OBSERVATION ORDERED. SITTER AT BEDSIDE. NOTIFIED CHARGE NURSE AND ATTENDING IN REGARDS TO ASSESSMENT FINDINGS. RESOURCES GIVEN TO PT AND SAFETY PLAN INITIATED.
[2018-12-15 16:12] LABS: ALBUMIN 4.4 g/dL (3.4-5.0); ALKALINE PHOSPHATASE 55 U/L (46-116); ALT (SGPT) 22 U/L (10-68); BILIRUBIN - TOTAL 0.45 mg/dL (0.2-1.3); CALC OSMOLALITY 285 mosm/kg (275-300); CALCIUM 9.2 mg/dL (8.5-10.1); CARBON DIOXIDE 29.4 mmol/L (21.0-32.0); CHLORIDE - SERUM 104 mmol/L (98-107); CREATININE - SERUM 1.1 mg/dL (0.6-1.3); GLUCOSE 121 mg/dL (74-106); POTASSIUM - SERUM 3.9 mmol/L (3.5-5.1); PROTEIN - SERUM 7.6 g/dL (6.4-8.2); SODIUM 142 mmol/L (136-145); UREA NITROGEN 19 mg/dL (7-18); eGFR NON AFRICAN AMERICAN 83 mL/min (90-120)
[2018-12-15 17:32] LABS: UDS - AMPHET NEGATIVE QUAL (NEGATIVE); UDS - BARB NEGATIVE QUAL (NEGATIVE); UDS - BENZO POSITIVE QUAL (NEGATIVE); UDS - COCAINE NEGATIVE QUAL (NEGATIVE); UDS - OPIATE NEGATIVE QUAL (NEGATIVE); UDS - PCP NEGATIVE QUAL (NEGATIVE); UDS - THC NEGATIVE QUAL (NEGATIVE)
[2018-12-16 00:15] VITALS: BP 143/89
== END 2018-12-16 00:07 ==
LOC: D.ER 14:32
PROVIDERS: Family Medicine
DX: R45.851 Suicidal ideations (principal); R44.0 Auditory hallucinations; F20.9 Schizophrenia, unspecified

== ENCOUNTER 2019-01-17 15:31 | Emergency (ER) | payer MEDICAID ==
[~2019-01-17] VITALS: Ht 180.3 cm; Wt 72.7 kg
[2019-01-17 15:44] VITALS: BP 146/59; Ht 180.3 cm; Wt 72.7 kg
[2019-01-17] MEDS ORDERED: VIVANCE (15:49)
[2019-01-17] MEDS ORDERED: LITHIUM CARBON300 MG PO ×2 (15:49→15:50)
[2019-01-17] MEDS ORDERED: ABILIFY MAINTE400 MG IM (17:30)
== END 2019-01-17 17:40 | disposition home or self-care (01) ==
LOC: D.ER 15:31
DX: Z76.0 Encounter for issue of repeat prescription (principal)

== ENCOUNTER 2019-01-20 15:32 | Emergency (ER) | payer MEDICAID ==
[~2019-01-20] VITALS: Ht 180.3 cm; Wt 75.0 kg
[~2019-01-20 15:32] MED LIST changes: +ABILIFY MAINTE400 MG IM; +VIVANCE
[2019-01-20 15:39] VITALS: Ht 180.3 cm; Wt 75.0 kg
[2019-01-20 16:02] LABS: BASOPHILS 0.3 % (0-2); EOSINOPHILS 3.2 % (0-7); HEMATOCRIT 44.4 % (42.0-54.0); HEMOGLOBIN 15.9 g/dL (13.5-17.5); IMMATURE GRANULOCYTES 0.3 % (0-5); LYMPHOCYTES 22.7 % (15-50); MCH 30.7 pg (26.0-34.0); MCHC 35.8 g/dL (31.0-37.0); MCV 85.7 fL (80.0-100.0); MEAN PLATELET VOLUME 10.9 fL (7.4-10.4); MONOCYTES 5.6 % (2-11); NEUTROPHILS 67.9 % (40-80); PLATELET COUNT 211 10x3/uL (130-400); RBC 5.18 10x6/uL (4.20-6.10); RDW 12.8 % (11.5-14.5); WBC 11.7 10x3/uL (4.8-10.8)
--- NOTE | 2019-01-20 16:05 | NUR ---
DR. CARBAJAL NOTIFIED AND SITTER ORDERED. SITTER AT BEDSIDE. NOTIFIED CHARGE NURSE AND ATTENDING IN REGARDS TO ASSESSMENT FINDINGS. RESOURCES GIVEN TO PT AND SAFETY PLAN INITIATED.
[2019-01-20 16:20] LABS: APPEARANCE CLEAR (CLEAR); BILIRUBIN NEGATIVE (NEGATIVE); COLOR YELLOW (YELLOW); GLUCOSE NEGATIVE (NEGATIVE); KETONE NEGATIVE (NEGATIVE); NITRITE NEGATIVE (NEGATIVE); PROTEIN NEGATIVE (NEGATIVE); UROBILINOGEN NORMAL (NORMAL)
[2019-01-20 16:21] LABS: UDS - AMPHET NEGATIVE QUAL (NEGATIVE); UDS - BARB NEGATIVE QUAL (NEGATIVE); UDS - BENZO POSITIVE QUAL (NEGATIVE); UDS - COCAINE NEGATIVE QUAL (NEGATIVE); UDS - OPIATE NEGATIVE QUAL (NEGATIVE); UDS - PCP NEGATIVE QUAL (NEGATIVE); UDS - THC NEGATIVE QUAL (NEGATIVE)
[2019-01-20 16:23] LABS: RED CELLS - URINE OCC /hpf (0-5); WHITE CELLS - URINE OCC /hpf (0-5)
[2019-01-20 16:25] LABS: ALBUMIN 4.4 g/dL (3.4-5.0); ALKALINE PHOSPHATASE 68 U/L (46-116); ALT (SGPT) 14 U/L (10-68); BILIRUBIN - TOTAL 0.46 mg/dL (0.2-1.3); CALC OSMOLALITY 279 mosm/kg (275-300); CALCIUM 9.2 mg/dL (8.5-10.1); CARBON DIOXIDE 26.6 mmol/L (21.0-32.0); CHLORIDE - SERUM 104 mmol/L (98-107); GLUCOSE 91 mg/dL (74-106); MAGNESIUM - SERUM 1.9 mg/dL (1.8-2.4); POTASSIUM - SERUM 4.3 mmol/L (3.5-5.1); PROTEIN - SERUM 7.8 g/dL (6.4-8.2); SODIUM 140 mmol/L (136-145); UREA NITROGEN 14 mg/dL (7-18); eGFR NON AFRICAN AMERICAN > 90 mL/min (90-120)
[2019-01-20 23:49] VITALS: BP 145/78
== END 2019-01-21 01:40 ==
LOC: D.ER 15:32
PROVIDERS: Family Medicine
DX: R45.851 Suicidal ideations (principal); F32.9 Major depressive disorder, single episode, unspecified

== ENCOUNTER 2019-03-13 19:30 | Emergency (ER) | payer MEDICAID ==
[~2019-03-13] VITALS: Ht 180.3 cm; Wt 75.0 kg
[2019-03-13 19:41] VITALS: Ht 180.3 cm; Wt 75.0 kg
[2019-03-13 20:06] LABS: BASOPHILS 0.3 % (0-2); HEMATOCRIT 43.8 % (42.0-54.0); HEMOGLOBIN 15.8 g/dL (13.5-17.5); IMMATURE GRANULOCYTES 0.3 % (0-5); LYMPHOCYTES 24.7 % (15-50); MCHC 36.1 g/dL (31.0-37.0); MCV 85.9 fL (80.0-100.0); MEAN PLATELET VOLUME 10.6 fL (7.4-10.4); MONOCYTES 3.5 % (2-11); NEUTROPHILS 68.2 % (40-80); PLATELET COUNT 236 10x3/uL (130-400); RDW 12.8 % (11.5-14.5); WBC 10.5 10x3/uL (4.8-10.8)
[2019-03-13 20:13] LABS: APPEARANCE CLEAR (CLEAR); BILIRUBIN NEGATIVE (NEGATIVE); COLOR YELLOW (YELLOW); GLUCOSE NEGATIVE (NEGATIVE); KETONE NEGATIVE (NEGATIVE); NITRITE NEGATIVE (NEGATIVE); PROTEIN NEGATIVE (NEGATIVE); UROBILINOGEN NORMAL (NORMAL)
[2019-03-13 20:17] LABS: UDS - AMPHET NEGATIVE QUAL (NEGATIVE); UDS - BARB NEGATIVE QUAL (NEGATIVE); UDS - BENZO POSITIVE QUAL (NEGATIVE); UDS - COCAINE NEGATIVE QUAL (NEGATIVE); UDS - OPIATE NEGATIVE QUAL (NEGATIVE); UDS - PCP NEGATIVE QUAL (NEGATIVE); UDS - THC POSITIVE QUAL (NEGATIVE)
[2019-03-13 20:34] LABS: ALBUMIN 4.3 g/dL (3.4-5.0); ALKALINE PHOSPHATASE 71 U/L (46-116); ALT (SGPT) 19 U/L (10-68); BILIRUBIN - TOTAL 0.31 mg/dL (0.2-1.3); CALC OSMOLALITY 286 mosm/kg (275-300); CALCIUM 8.8 mg/dL (8.5-10.1); CARBON DIOXIDE 27.5 mmol/L (21.0-32.0); CHLORIDE - SERUM 106 mmol/L (98-107); CREATININE - SERUM 1.1 mg/dL (0.6-1.3); GLUCOSE 82 mg/dL (74-106); POTASSIUM - SERUM 3.5 mmol/L (3.5-5.1); PROTEIN - SERUM 7.9 g/dL (6.4-8.2); SODIUM 145 mmol/L (136-145); UREA NITROGEN 11 mg/dL (7-18); eGFR NON AFRICAN AMERICAN 83 mL/min (90-120)
[2019-03-13 20:35] VITALS: BP 143/101
[2019-03-13 20:37] LABS: MAGNESIUM - SERUM 1.8 mg/dL (1.8-2.4)
--- NOTE | 2019-03-13 23:37 | NUR ---
DR CARBAJAL NOTIFIED AND SITTER ORDERED. SITTER AT BEDSIDE. NOTIFIED CHARGE NURSE AND ATTENDING IN REGARDS TO ASSESSMENT FINDINGS. RESOURCES GIVEN TO PT AND SAFETY PLAN INITIATED.
== END 2019-03-14 02:25 | disposition home or self-care (01) ==
LOC: D.ER 19:30
PROVIDERS: Family Medicine
DX: F32.9 Major depressive disorder, single episode, unspecified (principal)

== ENCOUNTER 2019-09-20 14:31 | Emergency (ER) | payer MEDICAID ==
[~2019-09-20] VITALS: Ht 180.3 cm; Wt 77.3 kg
[2019-09-20 14:36] VITALS: Ht 180.3 cm; Wt 77.3 kg
[2019-09-20] MEDS ORDERED: VIBRAMYCIN 100100 MG PO (14:50)
[2019-09-20 15:04] VITALS: BP 141/86
== END 2019-09-20 15:04 | disposition home or self-care (01) ==
LOC: D.ER 14:31
DX: L03.211 Cellulitis of face (principal); R10.9 Unspecified abdominal pain

== ENCOUNTER 2020-08-28 00:20 | Emergency (ER) | payer MEDICAID ==
[~2020-08-28] VITALS: Ht 180.3 cm; Wt 70.5 kg
[~2020-08-28 00:20] MED LIST changes: +DICLOFENAC SODI50 MG PO; +VIBRAMYCIN 100100 MG PO
[2020-08-28 00:24] VITALS: Ht 180.3 cm; Wt 70.5 kg
[2020-08-28] MEDS ORDERED: LYRICA100 MG PO (00:25)
[2020-08-28 01:26] VITALS: BP 137/84
== END 2020-08-28 01:26 | disposition home or self-care (01) ==
LOC: D.ER 00:20
DX: F20.9 Schizophrenia, unspecified (principal)

== ENCOUNTER 2020-12-28 09:23 | Emergency (ER) | payer MEDICARE ==
[~2020-12-28] VITALS: Ht 180.3 cm; Wt 65.9 kg
[~2020-12-28 09:23] MED LIST changes: +LYRICA100 MG PO
[2020-12-28 09:26] VITALS: BP 137/84; Ht 180.3 cm; Wt 65.9 kg
[2020-12-28] MEDS ORDERED: NEURONTIN800 MG PO (09:52)
[2020-12-28] MEDS ORDERED: BACTRIM DS TAB1 EAC1 PO (09:52)
[2020-12-28] MEDS ORDERED: CLINDAMYCIN HC300 MG PO (09:52)
== END 2020-12-28 10:52 | disposition home or self-care (01) ==
LOC: D.ER 09:23
DX: L03.113 Cellulitis of right upper limb (principal); I10 Essential (primary) hypertension; Z72.0 Tobacco use